=== PATIENT | female | born 1965 | race African-American/Black ===

== ENCOUNTER 2023-08-30 20:03 | Emergency (ER) | payer BC ==
[~2023-08-30] VITALS: Ht 170.2 cm; Wt 81.6 kg
[2023-08-30 20:11] VITALS: BP 134/68; RESP 34; TEMP 97.4; O2SAT 96
[2023-08-30 20:21] VITALS: TEMP 97.4; O2SAT 96
[2023-08-30] MEDS: ALBUTEROL SULFATE/IPRATROPIU 3 ML SOL IH ONE (20:25)
[2023-08-30 20:26] VITALS: PULSE 108; RESP 28; O2SAT 93; O2SAT 99
[2023-08-30] MEDS: methylPREDNISolone SS 125 MG/2 ML VIAL IVP ONE (20:41)
[2023-08-30 21:26] VITALS: PULSE 90; RESP 24; O2SAT 99
[2023-08-30] MEDS: ALBUTEROL 0.083% 2.5 MG/3 ML NEBU INH ONE (21:26)
[2023-08-30 21:44] LABS: BASOPHILS % (AUTO) 0.5 % (0.0-2.0); EOSINOPHILS % (AUTO) 0.3 % (0.0-4.0); HEMATOCRIT 38.6 % (36-48); LYMPHOCYTES # (AUTO) 1.9 K/uL (2.5-16.5); LYMPHOCYTES % (AUTO) 29.4 % (20.5-51.1); MEAN CORPUSCULAR HEMOGLOBIN 28 pg (27-31); MEAN CORPUSCULAR HGB CONC 34 g/dL (33-37); MEAN CORPUSCULAR VOLUME 81.9 fL (80-94); MONOCYTES # (AUTO) 0.7 K/uL (0.8-1.0); MONOCYTES % (AUTO) 11.3 % (1.7-9.3); NEUTROPHILS # (AUTO) 3.8 K/uL (1.8-7.7); NEUTROPHILS % (AUTO) 58.5 % (42.2-75.2); PLATELET COUNT (AUTO) 206 K/uL (140-450); RED BLOOD CELL COUNT(AUTO) 4.72 MIL/uL (4.20-5.40); RED CELL DISTRIBUTION WIDTH 16.9 % (11.6-13.7); WHITE BLOOD COUNT (AUTO) 6.5 K/uL (4.8-10.8)
[2023-08-30 22:00] LABS: ANION GAP 12.8 (8-16); CREATININE 1.1 mg/dL (0.6-1.3)
[2023-08-30 22:01] LABS: POTASSIUM 2.8 mmol/L (3.5-5.1)
[2023-08-30 22:04] LABS: ALBUMIN 3.4 g/dL (3.4-5.0); BILIRUBIN,DIRECT 0.1 mg/dL (0.0-0.3); TOTAL BILIRUBIN 0.4 mg/dL (0.0-1.0)
[2023-08-30 22:12] LABS: FLU A ANTIGEN negative (NEGATIVE); FLU B ANTIGEN NEGATIVE (NEGATIVE)
[2023-08-30] MEDS ORDERED: predniSONE 20 MG TAB ONE (22:34)
[2023-08-30] MEDS ORDERED: guaiFENesin 20 MG/ML UDC PO ONE (22:35)
[2023-08-30] MEDS: POTASSIUM CHLORIDE 10 MEQ TABER PO ONE (22:40)
[2023-08-30] MEDS: predniSONE 20 MG TAB PO ONE (22:40)
[2023-08-30 22:41] VITALS: BP 119/82; PULSE 90; O2SAT 98
[2023-08-30] MEDS ORDERED: BENZ200C4 PO (23:21)
[2023-08-30] MEDS ORDERED: PROM118S5 PO (23:21)
[2023-08-30] MEDS ORDERED: SUD30 PO (23:21)
[2023-08-30] MEDS ORDERED: ALBU2SYR98 PO (23:21)
[2023-08-30] MEDS ORDERED: METH4TAB1 PO (23:21)
[2023-08-30] MEDS ORDERED: MUC600 PO (23:21)
== END 2023-08-30 23:33 | disposition left against medical advice (07) ==
LOC: MED 20:03
DX: J45.901 Unspecified asthma with (acute) exacerbation (principal); Z20.822 Contact with and (suspected) exposure to COVID-19; E87.6 Hypokalemia; R79.1 Abnormal coagulation profile; Z79.899 Other long term (current) drug therapy
CPT/HCPCS: 36415; 71045; 80048; 80076; 83880; 84484; 85025; 85379; 87426; 87804; 93005; 94640; 96374; 99285; J2930; J7512; J7613